=== PATIENT | female | born 1985 | race Caucasian/White ===

== ENCOUNTER 2022-06-12 15:45 | Outpatient (RCR) | payer OTHER, SELFPAY ==
--- NOTE | 2022-03-29 12:15 | PTOPEVAL1 ---
Assessment and note entered by Radha Cunningham DPT Evaluation Information Assessment Status Evaluation Subjective Information Pt reports pelvic pain, recently had a full hysterectomy on 01/18/22. Reports no more restrictions from the surgery. No appts scheduled with the surgeon as of now. History of horrendous periods and menstrual migraines. Still noticing some pelvic floor spasms and some constipation/IBS issues. Will get pain and soreness with sexual activity. Highest pelvic pain recently 4/10 and lowest 1/10. Exercise will increase her pelvic pain. Always notices some tightness. Urinates 9-10 times a day, usually none at night. Pain with urination intermittently. Can hold urine an unlimited amount of time, reports more issues with not being able to empty completely. Denies urine leakage. BM every 3-4 days on average with meds, and usually painful. Significant pain in the past with pelvic exams and pap smears, unable to tolerate tampons etc. Pt has not been . Previous diagnosis of HPV and several procedures for it. Reported Pain Level Pain Score 1: Self Report Assessment PT Clinical Summary The patient is presenting to skilled therapy with a history of chronic pelvic pain. She presents with significantly increased pelvic floor muscle tone and pain, decreased core and hip strength, and scar tissue pain. She will benefit from therapy to address these impairments and safely reduce pain and dysfunction. Plan of Care Interventions Electrical Stimulation,Hot Pack/Cold Pack,Manual Therapy,Neuro Re-education,Patient/Caregiver Education,Therapeutic Activities,Therapeutic Exercise,Self-Care/Home Management PT Services Indicated Yes Treatment Frequency and 1 time a week for 8 weeks, or as allowed by Duration patient's work schedule These treatments will address the objective and functional deficits as defined above. The patient will be advanced safely and appropriately in order for the patient to progress towards his/her prior level of function. Additional exercises will be introduced and as well as a comprehensive home exercise program upon discharge, if needed, ?to ensure carryover of functional gains achieved in the clinic. This treatment plan has been reviewed and agreement upon by the patient.
--- NOTE | 2022-06-12 16:24 | PTOPPROG ---
Assessment and note entered by Radha Cunningham DPT Evaluation Information Assessment Status Progress Subjective Information Pt is resuming therapy after being out for approximately 2 months due to difficulty scheduling appointments with work. Reports she thinks she is noticing some improvements with her pain/tightness but then something will happen and it will get worse again. Also reports hemorrhoid issues. Highest pelvic pain in the last week 10 and lowest 04/11. Pain increases with stress, certain activities like sitting to drive, general activity like cleaning her house or running errands. Pain increases with lifting. No RTMD scheduled currently. Assessment PT Clinical Summary The patient is resuming therapy, has been unable to schedule due to work. She reports continued pain and difficulty with activities like cleaning and driving. She demonstrates decreased core and hip strength and significantly increased pelvic floor muscle tone, which are contributing to her pain. She will benefit from resuming therapy to address her impairments in order to reduce pain and return to prior level of function. Plan of Care Interventions Electrical Stimulation,Hot Pack/Cold Pack,Manual Therapy,Neuro Re-education,Patient/Caregiver Education,Therapeutic Activities,Therapeutic Exercise,Self-Care/Home Management PT Services Indicated Yes Treatment Frequency and 1 time every other week for 4 visits total Duration These treatments will address the objective and functional deficits as defined above. The patient will be advanced safely and appropriately in order for the patient to progress towards his/her prior level of function. Additional exercises will be introduced and as well as a comprehensive home exercise program upon discharge, if needed, ?to ensure carryover of functional gains achieved in the clinic. This treatment plan has been reviewed and agreement upon by the patient.
--- NOTE | 2022-06-16 09:25 | PCPTNOTE ---
This treatment is being continued on visit number [id number]. Please see documentation on both accounts to view progress. Completed interventions, outcomes, and problems have been marked as Inactive to facilitate the copying of the Care plan routine for recurring accounts.
== END 2022-06-15 07:04 | disposition home or self-care (01) ==
LOC: ANHGOSHPT 15:45
DX: M62.89 Other specified disorders of muscle (principal)
CPT/HCPCS: 97110; 97162; 97530

== ENCOUNTER 2022-07-31 15:45 | Outpatient (RCR) | payer OTHER, SELFPAY ==
--- NOTE | 2022-06-16 09:26 | PCPTNOTE ---
The treatment documented on this account is a continuation of the treatment documented on visit number [id number]. Please see documentation on both accounts to view progress. The Plan of Care has been transitioned and updated within the new V#. I have addressed and agree with the discipline specific Problems, Interventions, and Goals for the current certification period. Completed interventions, outcomes, and problems have been marked as Inactive to facilitate the copying of the Care plan routine for recurring accounts.
--- NOTE | 2022-07-26 10:08 | PCPTNOTE ---
Patient called to cancel appointment on 07/24/22 due to work conflict
--- NOTE | 2022-07-31 16:11 | PTOPDC ---
Assessment and note entered by Radha Cunningham DPT Evaluation Information Assessment Status Discharge Subjective Information Pt reports she has a very bad vestibular migraine today and is not feeling well, considered cancelling appointment but feels ok doing re- evaluation and not the exercises. States she has been trying to work through strategies to relax muscles especially while trying to urinate. Highest pelvic pain in the last week 07/10 and lowest 04/11. Reports concerns about continuing to have pain with intercourse or a pap smear etc. Reported Pain Level Pain Score 1: Self Report Assessment PT Clinical Summary The patient has made limited progress in therapy and discharge is recommended at this time. She reports minimal changes in her pelvic pain. She has been educated in strategies to continue progressing HEP independently and to follow up with PT and/or MD as needed. Plan of Care PT Services Indicated No
== END 2022-08-01 09:25 | disposition home or self-care (01) ==
LOC: ANHGOSHPT 15:45
DX: M62.89 Other specified disorders of muscle (principal)
CPT/HCPCS: 97110; 97112; 97140

== ENCOUNTER 2023-06-24 14:45 | Emergency (ER) | payer OTHER, SELFPAY ==
--- NOTE | ~2023-06-24 | XR_ITS ---
EXAMINATION: XR chest 2V Exam Date/Time: 06/24/2023 15:23 CDT HISTORY: heart rate problems Comparison: None. RESULT: Lines, tubes, and devices: None. Lungs and pleura: Clear. Cardiomediastinal silhouette: Unremarkable. Other: No acute osseous or upper abdominal finding. IMPRESSION: No acute cardiopulmonary process. Reviewed, dictated and finalized at location K.
--- NOTE | 2023-06-24 14:46 | ECG_ITS ---
Measurements Intervals [place] Rate: 116 P: 51 CT: 97 QRS: 73 QRSD: 84 T: 50 QT: 320 QTc: 445 Interpretive Statements SINUS TACHYCARDIA WITH SHORT CT INTERVAL ST ABNORMALITY IN ANT/INF LEADS- CONSIDER ISCHEMIA BASELINE WANDER- III, V3 ABNORMAL ECG NO PREVIOUS ECG AVAILABLE FOR COMPARISON Electronically Signed On 06-24-2023 16:49:05 CDT by Wojciech Coleman D.O.
[2023-06-24 14:54] VITALS: BP 151/95; PULSE 105; RESP 18; TEMP 36.7; O2SAT 100
[2023-06-24 15:59] VITALS: BP 152/91; PULSE 103; PULSE 98; RESP 14; O2SAT 100
[2023-06-24 16:01] VITALS: BP 152/91; PULSE 108; RESP 11; O2SAT 100
--- NOTE | 2023-06-24 16:15 | ED.GENADULT ---
HPI - General Adult General Chief complaint: Dizziness Stated complaint: dizziness Time Seen by Provider: 06/24/23 16:01 Source: patient Mode of arrival: ambulatory History of Present Illness HPI narrative: 38-year-old female here for dizziness over the last few days. Reports that patient keeps her heart rate with it occasionally goes down to 50s for the last week which makes her feel lightheaded like she might pass out and lost go up to 130 and those times she also feels like she is going to pass. She said there was no good reason for it happening and she does not think she is very stressed out lately. No stimulants. Related Data Home Medications Medication Instructions Recorded Confirmed atenolol 25 mg tablet mg 06/24/23 clonazepam 0.5 mg tablet mg 06/24/23 dicyclomine 10 mg capsule mg 06/24/23 estradiol 0.01% (0.1 mg/gram) vaginal 06/24/23 vaginal cream gabapentin 300 mg capsule mg 06/24/23 hydroxychloroquine 200 mg tablet mg PO 06/24/23 linaclotide 145 mcg capsule mcg 06/24/23 (Linzess) linaclotide 290 mcg capsule mcg 06/24/23 (Linzess) meclizine 25 mg tablet mg 06/24/23 prucalopride 2 mg tablet mg 06/24/23 06/24/23 (Motegrity) Allergies Allergy/AdvReac Type Severity Reaction Status Date / Time azithromycin Allergy Severe THROAT Verified 06/24/23 16:01 SWELLING Cephalosporins Allergy Mild RASH Verified 06/24/23 16:01 Estrogens Allergy Mild WEIRD SIDE Verified 06/24/23 16:01 EFFECTS miconazole Allergy Mild SWELLING Verified 06/24/23 16:01 Penicillins Allergy Mild RASH Verified 06/24/23 16:01 Sulfa (Sulfonamide Allergy Unknown rash Verified 06/24/23 16:01 Antibiotics) Review of Systems Review of Systems: All systems reviewed & are unremarkable except as noted in HPI and below Course Vital Signs Vital signs: Vital Signs Temperature 36.7 C 06/24/23 14:54 Pulse Rate 105 H 06/24/23 14:54 Respiratory Rate 18 06/24/23 14:54 Blood Pressure 151/95 H 06/24/23 14:54 Pulse Oximetry 100 06/24/23 14:54 Temperature 36.7 C 06/24/23 14:54 Pulse Rate 98 03/24/24 15:59 Respiratory Rate 14 06/24/23 15:59 Blood Pressure 152/91 H 06/24/23 15:59 Pulse Oximetry 100 06/24/23 15:59 Medical Decision Making [facility] Narrative Medical decision making narrative: 38-year-old well-appearing female presenting for concerns for tachycardia, bradycardia, lightheadedness episodes for the last week. On exam she is very well-appearing. Initially heart rate 105. Current heart rate 98. She was tachycardic on her EKG. Otherwise normal cardiorespiratory exam. Uncertain as to exact cause, could be related to orthostasis, possibly arrhythmia, potential psychogenic. Obtaining cardiac workup. Put on the monitor. EKG obtained at 2:52 p.m. shows sinus tachycardia, short WA interval, reading moderate ST depression but I am not seeing any significant ST changes. No obvious ischemic changes. Impression: No STEMI Labs show no focal abnormality apart from some slight hypokalemia. Give her some oral potassium.. Negative cardiac workup. Re-evaluated, feels a lot better, likely home. Discussed following up with PCP for Holter monitor and she agrees with this. She will call him tomorrow. Pt feeling improved and would like to go home at this point. Return precautions were given to the patient include any new or worsening symptoms or development of and not limited to any chest pain, shortness of breath, lightheadedness, abdominal pain, fevers, chills. Patient understands and agrees. They are to follow-up with her PCP. All questions were answered. I reviewed the patient's vital signs, history, allergies, and labs and imaging workup. Vital Signs Vital Signs: Vital Signs Temperature 36.7 C 06/24/23 14:54 Pulse Rate 105 H 06/24/23 14:54 Respiratory Rate 18 06/24/23 14:54 Blood Pressure 151/95 H 06/24/23 14:54 Pulse Oximetry 100 06/24/23 14:54 [place]
[2023-06-24 16:16] VITALS: BP 130/84; PULSE 101; RESP 13; O2SAT 100
[2023-06-24 16:31] LABS: Basophils Percent Auto 0.4 % (0.2-1.2); Eosinophils Absolute Auto 0.1 K/mm3 (0-0.3); Eosinophils Percent Auto 1.5 % (0-4.4); Hematocrit 50.5 % (37.0-47.0); Hemoglobin 17.5 g/dL (12.0-15.0); Immature Granulocyte Absolute 0.05 K/mm3 (0.00-0.031); Immature Granulocyte Percent A 0.5 % (0-0.5); Lymphocytes Absolute Auto 3.79 K/mm3 (0.9-3.2); Lymphocytes Percent Auto 40.9 % (18.3-44.2); Mean Corpuscular HGB Conc 34.7 g/dl (32-36); Mean Corpuscular Hemoglobin 31.4 pg (26-34); Mean Corpuscular Volume 90.7 fl (80-100); Mean Platelet Volume 9.9 fl (7.4-10.4); Monocytes Absolute Auto 0.8 K/mm3 (0.1-0.6); Monocytes Percent Auto 8.1 % (2.6-8.5); Neutrophils Absolute Auto 4.5 K/mm3 (1.3-6.7); Neutrophils Percent Auto 48.6 % (45.5-73.1); Platelet Count Result 247 k/mm3 (150-375); Red Blood Count 5.57 M/mm3 (4.2-5.4); Red Cell Distribution Width 12.4 % (11.5-14.5); White Blood Count 9.3 K/mm3 (4.5-10.0)
[2023-06-24 16:39] LABS: Alanine Aminotransferase 38 U/L (6-35); Albumin Level 4.9 g/dL (3.5-5.1); Alkaline Phosphatase 54 U/L (38-126); Anion Gap 10 mmol/L (8-16); Aspartate Amino Transferase 31 U/L (14-36); Bilirubin,Total 1.3 mg/dL (0.2-1.3); Blood Urea Nitrogen 16 mg/dL (7-17); Calcium 9.9 mg/dL (8.4-10.2); Carbon Dioxide 29 mmol/L (22-30); Chloride 101 mmol/L (98-107); Estimated CRCL calculation 74 ml/min; Estimated Glomerular Filt Rate > 60; Glucose 81 mg/dL (65-110); Potassium 3.1 mmol/L (3.4-5.0); Sodium 140 mmol/L (137-145)
[2023-06-24 16:54] LABS: Add Urine Microscopic? NO; Appearance Urine Clear (Clear); Color Urine Yellow (Yellow)
[2023-06-24 16:55] LABS: Bilirubin Urine Negative (Negative); Blood Urine Negative (Negative); Glucose Urine UA Negative (Negative); Ketones Urine Negative (Negative); Leukocyte Esterase Ur Negative LEU/UL (Negative); Nitrate Urine Negative (Negative); Protein Urine Negative (Negative); Urobilinogen Urine 0.2 mg/dL (<2.0)
[2023-06-24 17:02] LABS: Troponin I < 0.012 ng/mL (0.000-0.034)
[2023-06-24] MEDS: POTASSIUM CHLORIDE 20 MEQ PACKET (FOR LIQUID) 40 MEQ PO (17:03)
[2023-06-24 17:05] VITALS: BP 127/89; PULSE 93; RESP 17; O2SAT 100
[2023-06-24] MEDS: SODIUM CHLORIDE 0.9% IV 1,000 ML 999 ML IV CONT (17:12)
== END 2023-06-24 18:14 | disposition home or self-care (01) ==
PROVIDERS: Emergency Medicine; Emergency Provider Emergency Medicine
DX: R42 Dizziness and giddiness (principal); R00.0 Tachycardia, unspecified; R94.31 Abnormal electrocardiogram [ECG] [EKG]
CPT/HCPCS: 36415; 71046; 80053; 81003; 81025; 84484; 85025; 93005; 96360; 99284; A9270; J7030